=== PATIENT | female | born 1940 | race Caucasian/White ===

== ENCOUNTER 2022-01-09 05:28 | Outpatient (CLI) | payer MEDICARE ==
[~2022-01-09] VITALS: Ht 160 cm; Wt 52.0 kg
[2022-01-11] MEDS ORDERED: ATENOLOL (12:54)
[2022-01-11] MEDS ORDERED: NORVA (12:54)
[2022-01-11] MEDS ORDERED: PROG50VI5 (12:54)
[2022-01-11] MEDS ORDERED: ESTR1PAT TD (12:54)
== END 2022-01-11 13:00 | disposition home or self-care (01) ==
LOC: PREOP 05:28
PROVIDERS: ATTEND Obstetrics & Gynecology
DX: Z01.818 Encounter for other preprocedural examination (principal)

== ENCOUNTER 2022-01-19 06:02 | Day surgery (SDC) | payer MEDICARE ==
[2022-01-19] VITALS (14 sets, daily range): BP systolic 103–141; BP diastolic 51–79
[~2022-01-19] VITALS: Ht 160 cm; Wt 52.0 kg
[~2022-01-19 06:02] MED LIST: ATENOLOL; ESTR1PAT TD; NORVA; PROG50VI5
[2022-01-19 06:32] LABS: BASOPHILS % (AUTO) 1 % (0-10); EOSINOPHILS # (AUTO) 0.2 10^3/uL (0.0-0.3); EOSINOPHILS % (AUTO) 4 % (0-10); HEMATOCRIT 44 % (35-52); HEMOGLOBIN 15.3 g/dL (11.5-16.0); LYMPHOCYTES # (AUTO) 2.3 10^3/uL (1.0-4.0); LYMPHOCYTES % (AUTO) 43 % (12-44); MEAN CORPUSCULAR HEMOGLOBIN 31 pg (25-34); MEAN CORPUSCULAR HGB CONC 35 g/dL (32-36); MEAN CORPUSCULAR VOLUME 91 fL (80-99); MEAN PLATELET VOLUME 9.7 fL (9.0-12.2); MONOCYTES # (AUTO) 0.7 10^3/uL (0.0-1.0); MONOCYTES % (AUTO) 13 % (0-12); NEUTROPHILS % (AUTO) 39 % (42-75); PLATELET COUNT 150 10^3/uL (130-400); WHITE BLOOD COUNT 5.2 10^3/uL (4.3-11.0)
[2022-01-19] MEDS ORDERED: LIDOCAINE/EPI 2% 1:200,00 (XYLOCAINE) 20 ML VIAL ONE (06:43)
[2022-01-19] MEDS ORDERED: ceFAZolin INJECTION 1,000 MG ONE (06:44)
[2022-01-19] MEDS ORDERED: ONDANSETRON 4 MG/2 ML (SDV) Z0FRAN ONE (06:59)
[2022-01-19] MEDS ORDERED: ROCURONIUM 50 MG/5 ML (ZEMURON) VIAL IV ONE (06:59)
[2022-01-19] MEDS ORDERED: proPOfol 200 MG/20 ML (DIPRIVAN) VIAL IV ONE (06:59)
[2022-01-19] MEDS ORDERED: LIDOCAINE PF 2% 5 ML (XYLOCAINE) VIAL ONE (06:59)
[2022-01-19] MEDS ORDERED: fentaNYL INJ 100 MCG/2 ML AMP ONE (06:59)
[2022-01-19] MEDS ORDERED: LACTATED RINGERS 1,000 ML IV PRN (07:00)
[2022-01-19] MEDS ORDERED: ceFAZolin INJECTION 1,000 MG VIAL IV ONE (07:00)
[2022-01-19] MEDS ORDERED: MIDAZOLAM 2 MG/2 ML (VERSED) VIAL ONE (07:00)
--- NOTE | 2022-01-19 07:09 | Progress Note-Pre Operative ---
Pre-Operative Progress Note Date of Available H&P: Jan 19, 2022 Date H&P Reviewed: Jan 19, 2022 Time H&P Reviewed: 07:09 History & Physical: H&P Reviewed, No changes noted Changes from last HP Interval note was placed in chart Pre-Operative Diagnosis: Complete uterovaginal prolapse and stress incontinence NAHUN HITCHCOCK MD Jan 19, 2022 07:09
--- NOTE | 2022-01-19 07:10 | Progress Note-Post Operative ---
Post-Operative Progess Note Surgeon (s)/Oil Well Cable Tool Operator (s) Surgeon NAHUN HITCHCOCK MD Oil Well Cable Tool Operator: Lori Pre-Operative Diagnosis Complete uterovaginal prolapse and stress incontinence Post-Operative Diagnosis Same with pathology pending Procedure & Operative Findings Date of Procedure 01/19/22 Procedure Performed/Findings Total laparoscopic hysterectomy with bilateral salpingo-oophorectomy and with anterior and posterior vaginal repairs with enterocele repair and SSL S with Dr. Roberson doing a pubovaginal sling and cystoscopy Anesthesia Type General Estimated Blood Loss Estimated blood loss (mL): 100cc Specimens/Packing Specimens Removed Uterus fallopian tubes and ovaries NAHUN HITCHCOCK MD Jan 19, 2022 07:10
--- NOTE | 2022-01-19 07:12 | Discharge Inst-Surgical ---
Discharge Inst-Surgical Depart Medication/Instructions New, Converted or Re-Newed RX: Transmitted to Pharmacy Consults/Follow Up Patient Instructions: As directed Orders & Referrals Follow Up Appt: Return to clinic on Saturday January 22, 2022 for staple removal Call to make follow up appt. for patient in 4 weeks. Activity: Rest for 24 hours, than as tolerated. Wound Care: May remove Band-Aid tomorrow. Replace as desired. Keep incisions clean and dry. Wash daily with soap and water. Diet: As tolerated shower or tub bathe as desired. No driving for 24 hours, no alcoholic beverages for 24 hours, and nothing per vagina (no tampons, douching, or intercourse) for 8 weeks. Patient to return to the clinic as soon as possible for: Temperature greater than 101F, Severe Pain, Foul discharge from incision or vagina, Excessive Bleeding (more than a period). Activity Activity as Tolerated: No Diet Discharge Diet: No Restrictions NAHUN HITCHCOCK MD Jan 19, 2022 07:11
[2022-01-19] MEDS ORDERED: ESTROGENS CONJ. CREAM 30 GM (PREMARIN) TUBE ONE (07:14)
[2022-01-19] MEDS ORDERED: PROMETHAZINE INJ 25 MG/ML (PHENERGAN) AMP IM PRN (07:15)
[2022-01-19] MEDS ORDERED: BENZOCAINE/MENTHOL (DERMOPLAST) 56 ML CAN TP PRN (07:15)
[2022-01-19] MEDS ORDERED: ESTROGENS CONJ INJECTION 25 MG in WATER (STERILE) FOR INJECTION 5 ML IV ONE (07:15)
[2022-01-19] MEDS ORDERED: fentaNYL INJ 100 MCG/2 ML AMP IVP PRN (07:15)
[2022-01-19] MEDS ORDERED: KETOROLAC 15 MG/ML VIAL IV SCH (07:15)
[2022-01-19] MEDS ORDERED: ONDANSETRON 4 MG/2 ML (SDV) Z0FRAN IVP PRN ×2 (07:15→10:45)
[2022-01-19] MEDS ORDERED: NALOXONE 0.4 MG/ML 1 ML (NARCAN) VIAL IV PRN (07:15)
--- NOTE | 2022-01-19 08:52 | Progress Note-Post Operative ---
Post-Operative Progess Note Surgeon (s)/Petrography Teacher (s) Surgeon CHRISTAL LOCKWOOD MD Petrography Teacher: MD CORETTA Pre-Operative Diagnosis INCONTINENCE Post-Operative Diagnosis SAME Procedure & Operative Findings Date of Procedure 01/19/22 Procedure Performed/Findings PVS AND CYSTOSCOPY Anesthesia Type GENERAL Estimated Blood Loss Estimated blood loss (mL): NEGLIGIBLE Specimens/Packing Specimens Removed NONE PackinGM ESTRACE VAG PACK CHRISTAL LOCKWOOD MD Jan 19, 2022 08:52
[2022-01-19] MEDS ORDERED: SEVOFLURANE (ULTANE) 15 ML INHAL SOLN ONE ×2 (09:05→10:06)
[2022-01-19] MEDS ORDERED: GLYCOPYRROLATE 0.2 MG/ML (ROBINUL) 2 ML VIAL ONE (10:14)
[2022-01-19] MEDS ORDERED: NEOSTIGMINE (BLOXIVERZ ) 1 MG/1ML 10 ML VIAL ONE (10:14)
--- NOTE | 2022-01-19 10:33 | Anesthesia-General Post-Op ---
General Patient Condition Mental Status/LOC: Same as Preop Cardiovascular: Satisfactory Nausea/Vomiting: Absent Respiratory: Satisfactory Pain: Controlled Complications: Absent Post Op Complications Complications None Follow Up Care/Instructions Patient Instructions None needed. Anesthesia/Patient Condition Patient Condition Patient is doing well, no complaints, stable vital signs, no apparent adverse anesthesia problems. No complications reported per nursing. TEX RIOS CRNA Jan 19, 2022 10:33
[2022-01-19] MEDS ORDERED: morphine INJ 10 MG/ML 1ML (SYR OR VIAL) IVP ONE (10:45)
[2022-01-19] MEDS ORDERED: MEPERIDINE (DEMEROL) INJ 50 MG/ML IVP ONE (10:45)
[2022-01-19] MEDS ORDERED: HYDROmorphone 2 MG/ML VIAL (DILAUDID) IV ONE (10:45)
[2022-01-19] MEDS ORDERED: WATER (STERILE) FOR INJECTION 10 ML ONE (10:47)
[2022-01-19] MEDS ORDERED: ESTROGENS CONJ INJECTION 5 ML ONE (10:47)
[2022-01-19] MEDS: D5 LR IV SOLUTION 1,000 ML IV SCH ×2 (12:15→20:02)
[2022-01-19] MEDS: ACETAMINOPHEN 500 MG TAB (TYLENOL) PO SCH ×2 (13:53→19:58)
--- NOTE | 2022-01-19 15:19 | OPERATIVE REPORT ---
DATE OF SERVICE: 01/19/2022 PREOPERATIVE DIAGNOSIS: On my part, urinary incontinence. POSTOPERATIVE DIAGNOSIS: On my part, urinary incontinence. OPERATION PERFORMED: Pubovaginal sling and cystoscopy. SURGEON: Clint Lockwood MD ANESTHESIA: General. ROOFER GYPSUM: Dr. Ramirez. COMPLICATIONS: None. DESCRIPTION OF PROCEDURE: After Dr. Ramirez performed the first part of his surgery that he will dictate. I inserted a Husain catheter draining clear urine. I passed the Desara II instrument and using the described technique the sling was sitting nicely under the mid urethra with no tension, no twisting and passage of a curved hemostat easily between it and the underlying tissue. I removed the cystoscope and performed cystoscopy to confirm the integrity of the bladder, ureteral orifices and urethra with no foreign body and presence of the sling under the mid urethra. I left the bladder half full, removed the cystoscope, performed a manual Valsalva maneuver that was negative. I reinserted the Husain catheter draining clear fluid. Estimated blood loss on my part negligible and Dr. Ramirez procedure was the of his surgery that he will dictate. CC: Dr. Ramirez - requested, unable to deliver. Job ID: [id number] DocumentID: [id number] Dictated Date: 01/19/2022 09:34:37 Clinical Documentation Spec Date: 01/19/2022 15:19:08 Dictated By: CLINT LOCKWOOD MD
[2022-01-19] MEDS: KETOROLAC 15 MG/ML VIAL IV SCH (17:40)
--- NOTE | 2022-01-19 17:44 | OPERATIVE REPORT ---
DATE OF SERVICE: 01/19/2022 PREOPERATIVE DIAGNOSES: Complete uterovaginal prolapse with stress incontinence. POSTOPERATIVE DIAGNOSES: Complete uterovaginal prolapse with stress incontinence. OPERATIVE PROCEDURES: Total laparoscopic hysterectomy with bilateral salpingo-oophorectomy as well as anterior and posterior vaginal repairs with enterocele repair and pubovaginal sling procedure by Dr. Scanlon and also sacrospinous ligaments suspension procedure. Dr. Scanlon also did a cystoscopy. OPERATIVE DESCRIPTION: With the patient in supine position under satisfactory general anesthesia, she was repositioned in a dorsal lithotomy position in the [facility] and prepped and draped in the usual fashion for abdominal and vaginal surgery using the da Keith for assistance. The patient had complete vaginal prolapse with complete procidentia. A tenaculum was placed on the anterior lip of the cervix and then the uterus was sounded to 12 cm. The cervix was dilated with Misha dilators to accommodate a Elena II manipulator, which was placed using a 6 mm x 10 cm uterine probe and a 30 mm colpotomy ring. Sutures of #1 Vicryl were placed at 3 and 9 o'clock position of the cervix to affix the uterus to the manipulator. At this point, the vagina was still completely prolapsed and the uterus was still evident complete procidentia. With the manipulator in place, the uterus and the vagina were repositioned in its normal anatomic position. Husain catheter was placed in the urinary bladder and left to dependent drainage. The patient was brought in a low dorsal lithotomy position. A 12 mm incision was made 10 cm superior to the umbilicus. Veress needle was placed through that incision into the abdominal cavity. Correct placement was confirmed with a water drop test. The abdomen was insufflated with 2.4 liters of carbon dioxide. The Veress needle was removed and a 12 mm Optiview laparoscopic port was placed. The abdominal wall was transilluminated and 8 mm ports were placed through incisions of those sizes 8 cm lateral to the umbilicus and about 3 cm to 4 cm superior to the umbilicus. The patient was placed in a Trendelenburg allowing the bowel spill out of the pelvis. The da Keith column was advanced on the patient and docked and operative instruments were placed in the right and left lateral ports and I retired to the da Keith console. At the console using the vessel sealer on the right and a bipolar fenestrated grasper on the left, the pelvis was first examined. Both ovaries were normal, but somewhat atretic appearing. The uterus was somewhat enlarged and bulky. Both fallopian tubes appeared normal. Laparoscope was rotated. The appendix was identified. It was a normal vermiform appendix. The laparoscope was brought back to the pelvis. The right fallopian tube and ovary were grasped and elevated. The ureter was identified medial to the IP ligament. The IP ligament was clamped, cauterized and divided. This was continued stepwise across the mesovarium to the round ligament, which was divided as well with the vessel sealer. Dissection was carried across the broad ligament and down onto the cardinal ligament, allowing for removal of the tube and ovary eventually with the uterus. The same procedure performed on left with the same result. The anterior lower uterine segment peritoneum was now divided. The bladder was carefully dissected down off the lower uterine segment and colpotomy incision was started at 12 o'clock position onto the colpotomy ring. That incision was continued circumferentially until the entire colpotomy ring was exposed. The uterus with tubes and ovaries still attached was extracted through the vagina. The vaginal cuff was closed using two sutures of V-Loc barbed suture starting from the right angle and continuing across the vaginal cuff and using the last several stitches of each suture to reapproximate the bladder peritoneum back over the vaginal cuff. Care was taken to ensure inclusion of the uterine vessel pedicles with the angle stitches on each side. With the laparoscopic portion of the procedure complete, the procedure was halted. Sponge and needle counts were correct. Blood loss at this point was minimal. There was no abnormal pathology remaining inside. The operative instruments were removed as were the ports. The abdomen was evacuated of the insufflating gas. The skin incisions were closed with kelsie. The fascia at the supraumbilical incision was closed with a [id number] suture of 2-0 Vicryl. The patient was now repositioned in a dorsal lithotomy position for the vaginal portion of the surgery. Anterior repair was affected by placing a weighted speculum in the posterior fornix of vagina and grasping the anterior vaginal wall with two Torres clamps. The vaginal wall was opened in the midline with Metzenbaum scissors. That opening was continued anteriorly and posteriorly to approximately 1.5 cm from the urethral meatus and all the way up to the vaginal apex. The bladder was carefully dissected off the muscularis of the vagina back to the pubic rami bilaterally. The endopelvic fascia and bladder wall were then plicated with 2-0 Vicryl suture, elevating the bladder and lengthening the urethra. Dr. Scanlon assumed care of the patient at this point, I remained to assist. Dr. Scanlon performed a pubovaginal sling and a cystoscopy. On completion of this procedure, he left the Husain catheter to dependent drainage. He reported normal findings on cystoscopy. I resumed care of the patient at this point. I resected fairly notable redundant anterior vaginal wall and then closed the vaginal wall with a running locked suture of 2-0 Vicryl. Good support was evident and hemostasis was complete. Posterior repair was now affected by placing Torres clamps on the perineum and the hymenal ring at 5 and 7 o'clock position and inverted triangle skin was removed from the perineal body and upright triangle from the posterior vaginal floor. The rectovaginal space was entered sharply and dissected bluntly to the apex of the vagina. Dissection was carried over through the right rectal pillar to the right ischial spine and sacrospinous ligament. The GameMix[employer] device was used to place two Ethibond sutures through the sacrospinous ligament about 1 cm and 1.5 cm medial to the ischial spine. Both sutures were double armed. Both arms of each were brought out through the apex of the vagina, tagged and held long for tying later. The rectovaginal space was now obliterated with interrupted sutures of 2-0 Vicryl. The perineal body was restored with additional sutures of 2-0 Vicryl. Redundant posterior vaginal wall muscularis mucosa was removed sharply. The vaginal wall was then closed with a running locked suture of 3-0 Vicryl Rapide, that closure was continued past the hymenal ring down on the perineal body then back up subcutaneous to the hymenal ring where the suture was tied. At this point, both sacrospinous ligament suspension sutures were tied as each was tied. The apex of the vagina was brought well back up into the pelvis. Those sutures were cut short. These incision lines were examined for hemostasis, which was complete. The Husain catheter was draining straw-colored urine. Blood loss was minimal. The vagina was filled with Estrace vaginal cream and a pack of Kerlix gauze was placed. Digital rectal exam confirmed no stricture or stenosis of the rectum and no sutures into or through the rectal mucosa. At this point, again, sponge and needle counts were correct. Blood loss was around 100 mL. The patient tolerated the procedure well and was uneventfully awakened from her general anesthesia and transferred to the recovery room in stable condition. Job ID: [id number] DocumentID: [id number] Dictated Date: 01/19/2022 11:12:23 Transformer Repairer Date: 01/19/2022 17:43:30 Dictated By: NAHUN HITCHCOCK MD
[2022-01-19] MEDS: CEPACOL SORE THROAT-COUGH LOZENGE PO PRN ×3 (18:17→23:43)
[2022-01-20] MEDS: KETOROLAC 15 MG/ML VIAL IV SCH ×2 (01:01→06:39)
[2022-01-20 03:00] VITALS: BP 115/58
[2022-01-20] MEDS: ACETAMINOPHEN 500 MG TAB (TYLENOL) PO SCH ×2 (03:01→09:14)
[2022-01-20] MEDS: D5 LR IV SOLUTION 1,000 ML IV SCH (05:03)
[2022-01-20] MEDS ORDERED: IBUPROFEN 600 MG (MOTRIN) TAB PO ONE (06:23)
[2022-01-20 06:25] VITALS: BP 133/67
[2022-01-20] MEDS: IBUPROFEN 600 MG (MOTRIN) TAB PO SCH ×2 (06:27→11:56)
--- NOTE | 2022-01-20 08:08 | Progress Note ---
Standard Progress Note Progress Notes/Assess & Plan Date Seen by a Provider: Jan 20, 2022 Time Seen by a Provider: 08:06 Progress/Assessment & Plan This patient is without complaint. She is ambulating, tolerating oral intake well and has good pain control. She has not voided since her catheter was removed at 6 AM. Vital Signs Date Time Temp Pulse Resp B/P (MAP) Pulse Ox O2 Delivery O2 Flow Rate FiO2 01/20/22 06:25 37.1 61 16 133/67 (89) 98 Room Air 01/20/22 03:00 37.1 64 16 115/58 (77) 96 Room Air 01/19/22 20:15 37.2 77 16 122/57 (78) 95 Room Air 01/19/22 20:15 95 Room Air 01/19/22 17:30 95 Room Air 01/19/22 16:30 97 Room Air 01/19/22 16:00 36.9 78 18 130/56 (80) 99 Nasal Cannula 2.00 01/19/22 13:45 36.6 65 16 116/55 (75) 99 Nasal Cannula 2.00 01/19/22 12:30 36.4 55 16 106/52 (70) 98 Nasal Cannula 2.00 01/19/22 11:40 98 Nasal Cannula 2.00 01/19/22 11:40 36.0 53 16 103/51 (68) 98 Nasal Cannula 2.00 01/19/22 11:30 Room Air 01/19/22 11:30 36.4 18 112/68 (83) 95 Nasal Cannula 2.00 01/19/22 11:20 18 107/61 (76) 93 Nasal Cannula 2.00 01/19/22 11:18 Room Air 01/19/22 11:14 Room Air 01/19/22 11:10 18 115/60 (78) 97 Room Air 01/19/22 11:09 Room Air 01/19/22 11:06 OxyMask 3.00 01/19/22 11:00 18 106/52 (70) 98 OxyMask 3.00 01/19/22 10:53 OxyMask 6.00 01/19/22 10:50 18 119/79 (92) 99 OxyMask 6.00 01/19/22 10:40 18 117/62 (80) 100 OxyMask 6.00 01/19/22 10:39 OxyMask 6.00 01/19/22 10:30 18 108/57 (74) OxyMask 6.00 01/19/22 10:24 36.2 18 107/61 (76) 97 OxyMask 6.00 01/19/22 10:24 OxyMask 6.00 I & O 01/20/22 07:00 Intake Total 4900 ml Output Total 3500 ml Balance 1400 ml Vital signs are stable. Patient is afebrile. The abdomen is benign. The surgical incisions are clean dry and intact. Extremities show no clubbing cyanosis. There is no Homans' sign. Pelvic exam was deferred Assessment and plan Postoperative day #1 doing well. Plan is for routine convalescent care with discharge home and patient is ambulating, voiding, tolerating oral intake well and has good pain control with oral medication. That could be today or tomorrow primarily depending on bladder function Discharge will have to be approved by Dr. Roberson Final Diagnosis Complete uterovaginal prolapse NAHUN HITCHCOCK MD Jan 20, 2022 08:08
[2022-01-20] MEDS ORDERED: DOCU100C37 PO (08:09)
[2022-01-20] MEDS ORDERED: OXYC-199 PO (08:09)
[2022-01-20] MEDS ORDERED: IBUP-844 PO (08:09)
[2022-01-20] MEDS ORDERED: DOCUSATE SODIUM 100 MG (COLACE) CAP PO SCH (09:00)
[2022-01-20 09:05] VITALS: BP 139/63
[2022-01-20 12:02] VITALS: BP 119/57
[2022-01-20] MEDS ORDERED: CIPR-226 PO (15:27)
== END 2022-01-20 17:40 | disposition home or self-care (01) ==
LOC: SDC 06:02 → WS 11:40 → SDC 01-20 17:40
PROVIDERS: ATTEND Obstetrics & Gynecology
DX: D25.1 Intramural leiomyoma of uterus (principal); D25.2 Subserosal leiomyoma of uterus; D26.1 Other benign neoplasm of corpus uteri; N80.0 Endometriosis of uterus; N83.8 Other noninflammatory disorders of ovary, fallopian tube and broad ligament; N81.3 Complete uterovaginal prolapse; Z66 Do not resuscitate; N39.3 Stress incontinence (female) (male); N95.0 Postmenopausal bleeding
CPT/HCPCS: 57265; 57288; 58571; 85025; 87081; 94664; C1771; C2631; 36415